=== PATIENT | female | born 1940 | race Caucasian/White ===

== ENCOUNTER → 2016-10-31 | Outpatient (CLI) | payer MEDICARE, OTHER ==
[~2016-10-31] MED LIST: AC325T PO; ASP81TEC PO; HCTZ12.5T PO; IRB150T PO; LOSA25TA21 PO; OMEP20CA12 PO; OMG1KC PO
--- NOTE | 2016-10-31 10:13 | Diagnostic Imaging Report ---
PA and lateral chest at 10:11 AM. INDICATION: Cough. The heart size is within normal limits and stable when compared to 08/19/2015. As noted on the prior exam the right hemidiaphragm is elevated. The lungs remain clear. There is still no sign of failure, pneumonia, or pleural effusion to suggest an acute abnormality. The mediastinum is not widened. The osseous structures are intact. IMPRESSION: There is no evidence for active disease. Dictated by: Dictated on workstation # [id number]
== END ==
LOC: RAD 09:49
PROVIDERS: ATTEND Internal Medicine
DX: R05 Cough (principal)
CPT/HCPCS: 71020

== ENCOUNTER → 2021-01-28 | Outpatient (CLI) | payer MEDICARE ==
[~2021-01-28] MED LIST changes: -LOSA25TA21 PO; +LOSA25TA41 PO; -OMEP20CA12 PO; +OMEP20CA18 PO
== END ==
LOC: CARD 13:00
PROVIDERS: ATTEND Internal Medicine Cardiovascular Disease
DX: I11.9 Hypertensive heart disease without heart failure (principal); I25.10 Atherosclerotic heart disease of native coronary artery without angina pectoris
CPT/HCPCS: 93306

== ENCOUNTER → 2021-04-07 | Outpatient (CLI) | payer MEDICARE, OTHER ==
[~2021-04-07] VITALS: Ht 167 cm; Wt 80.0 kg
[~2021-04-07] MED LIST changes: +CATHETER FLUSH 10 ML SYR IV PRN; +REGADENOSON 0.4 MG/5 ML SYR (LEXISCAN) IV ONE
[2021-04-07 09:18] VITALS: BP 167/85
--- NOTE | 2021-04-07 13:40 | Cardiology Stress Test Report ---
Stress Test Report Date of Procedure/Referring: Date of Procedure: Apr 07, 2021 PCP Iris Ramos MD Admitting Physician Bucky Black MD Indications: HTN Baseline Heart Rate: 61 Baseline Blood Pressure: Blood Pressure Systolic: 167 Blood Pressure Diastolic: 85 Baseline Vitals Vital Signs Date Time Temp Pulse Resp B/P (MAP) Pulse Ox O2 Delivery O2 Flow Rate FiO2 04/07/21 09:18 67 18 167/85 (112) 98 Room Air Baseline EKG: Baseline EKG: NSR Summary After explaining the procedure to the patient, she signed a consent and then brought to the stress nuclear laboratory. Patient received 0.4 mg Lexiscan for stress test, ECG, heart rate and blood pressure were monitored continuously. Resting and stress dose of radio tracer were injected, imaging was acquired and reviewed in short axis, horizontal long axis and vertical long axis views. TID: 1.04 SSS: 4 SDS: 3 EF: 75 1. Patient tolerated Lexiscan well 2. Breast attenuation with typical female pattern, no significant ischemia or infarction on SPECT images 3. Normal left ventricular size, EF 75% IRIS RAMOS MD Apr 07, 2021 13:40
== END ==
LOC: CARD 07:17
PROVIDERS: ATTEND Internal Medicine Cardiovascular Disease
DX: I10 Essential (primary) hypertension (principal); I25.10 Atherosclerotic heart disease of native coronary artery without angina pectoris
CPT/HCPCS: 78452; 93017; A9502